=== PATIENT | female | born 1980 | race Caucasian/White ===

== ENCOUNTER 2024-01-03 10:31 | Inpatient (IN) | payer MEDICAID, OTHER ==
[~2024-01-03] VITALS: Ht 167.6 cm; Wt 109.0 kg
[2024-01-03] VITALS (10 sets, daily range): BP systolic 120–130; BP diastolic 61–79; PULSE 98–115; RESP 14–24; TEMP 99.1; O2SAT 94–100
[2024-01-03] MEDS: ALBUTEROL SULF 2.5 MG/0.5ML(0.5%) NEB SOLN NEB ONE (11:22)
[2024-01-03] MEDS: IPRATROPIUM BROM 0.5 MG/2.5ML INH SOL NEB ONE (11:22)
[2024-01-03 11:24] LABS: Urine Bacteria FEW /hpf (None Seen); Urine Blood TRACE /uL (Negative); Urine Clarity Turbid (Clear); Urine Color Light-Yellow (Yellow); Urine Hyaline Cast MANY /lpf (0 - 2); Urine Mucus FEW (None Seen); Urine Protein, UAD 2+ (Negative); Urine Specific Gravity 1.015 (1.001-1.035); Urine Urobilinogen Normal (Negative); Urine WBC 6 /hpf (0 - 5); Urine pH 5.5 (5.0-9.0)
[2024-01-03 11:33] LABS: Basophils # (auto) 0 10 ^3/uL (0-0.2); Basophils % (auto) 0.1 % (0.0-2.0); Eosinophils # (auto) 0 10 ^3/uL (0-0.8); Eosinophils % (auto) 0.1 % (0.0-7.0); Hematocrit 44.4 % (36.0-46.0); Hemoglobin 14.1 g/dL (12.2-16.2); Lymphocytes % (auto) 8.2 % (10.0-50.0); Mean Corpuscular Hemoglobin 27.8 pg (28.0-32.0); Mean Corpuscular Hgb Conc. 31.7 g/dL (32.0-36.0); Mean Corpuscular Volume 87.6 fL (80.0-100.0); Monocytes # (auto) 1.3 10 ^3/uL (0-1.3); Monocytes % (auto) 5.2 % (0.0-12.0); Neutrophils # (auto) 21.5 10 ^3/uL (1.6-8.6); Neutrophils % (auto) 86.4 % (37.0-80.0); Red Blood Cells 5.07 10^6/uL (4.0-5.20); Red Cell Distribution Width 16.1 % (11.8-14.3); White Blood Cell 24.8 10^3/uL (4.4-10.8)
[2024-01-03] MEDS: cefTRIAXone 1GM/50ML D5W 50 ML IV ONE (11:38)
[2024-01-03] MEDS: methylPREDNISolone SOD SUCC 125 MG/2 ML VL IV ONE (11:38)
[2024-01-03 11:49] LABS: Alanine Aminotransferase 28 U/L (7-40); Albumin 4.4 g/dL (3.2-4.8); Alkaline Phosphatase 97 U/L (46-116); Anion Gap 8 (5-15); Aspartate Aminotransferase 33 U/L (13-40); BUN/Creatinine Ratio 8.8 (10.0-20.0); Bilirubin, Total 0.4 mg/dL (0.2-1.0); Blood Urea Nitrogen 10 mg/dL (9-23); Calcium 9.1 mg/dL (8.5-10.1); Carbon Dioxide 22 mmol/L (20-30); Chloride 107 mmol/L (98-107); Glucose 218 mg/dL (74-106); Sodium 137 mmol/L (136-145); Total Protein 7.4 g/dL (5.7-8.2)
[2024-01-03] MEDS ORDERED: MORPHINE SULFATE INJ 2 MG/ml SYRG IV PRN (13:00)
[2024-01-03] MEDS ORDERED: SODIUM CHLORIDE 0.9% 1,000 ML IV SCH (13:00)
[2024-01-03] MEDS ORDERED: DOCUSATE SOD 100 MG CAP PO PRN (13:00)
[2024-01-03 14:05] LABS: Lactic Acid w/Reflex 2.2 mmol/L (0.4-2.0)
[2024-01-03] MEDS: IPRATROPIUM BROM 0.5 MG/2.5ML INH SOL NEB SCH (14:13)
[2024-01-03] MEDS: ALBUTEROL SULF 2.5 MG/0.5ML(0.5%) NEB SOLN NEB SCH (14:13)
[2024-01-03] MEDS ORDERED: VANCOMYCIN PER PHARMACY 0 MG IV SCH (14:15)
[2024-01-03] MEDS ORDERED: VANCOMYCIN 1GM/200ML 200 ML IV ONE (14:15)
[2024-01-03] MEDS ORDERED: SODIUM CHLORIDE 0.9% 2,000 ML IV ONE (14:15)
[2024-01-03] MEDS ORDERED: DEXTROSE (50%) 50ML SYRG IV PRN (14:30)
[2024-01-03] MEDS: levoFLOXacin 500MG 100 ML IV ONE (14:49)
[2024-01-03] MEDS: methylPREDNISolone SOD SUCC 125 MG/2 ML VL IV SCH (14:49)
[2024-01-03] MEDS: IOHEXOL 350 MG/ML 100ML IJ ONE (14:50)
[2024-01-03] MEDS: PANTOPRAZOLE 40 MG/10 ML VIAL INJ IV ONE (14:51)
[2024-01-03] MEDS: VANCOMYCIN 1GM/200ML 200 ML IV SCH (15:59)
[2024-01-03 16:18] LABS: Base Excess -9.4 mmol/L (-2.0-2.0)
[2024-01-03 16:20] LABS: Base Excess -8.1 mmol/L (-2.0-2.0)
[2024-01-03] MEDS: ASPirin-EC 325mg tab PO ONE (16:22)
[2024-01-03] MEDS: FUROSEMIDE 40 MG/4 ML VIAL IV ONE (16:24)
[2024-01-03] MEDS: SODIUM BICARB 8.4% 50Meq/50ml SYR Vial IV ONE (16:50)
[2024-01-03] MEDS ORDERED: FUROSEMIDE 20 MG/2 ML VIAL IV SCH (18:00)
[2024-01-03] MEDS: ONDANSETRON HCL 4 MG/2 ML VIAL IV PRN (18:30)
[2024-01-03] MEDS: ENOXAPARIN SOD 40 MG/0.4 ML SYRINGE SC ONE (18:31)
[2024-01-03] MEDS: InsuLIN REG 1unit/0.01ml Soln (100units/ml) SC SCH (18:40)
[2024-01-03] MEDS: ACCU-CHEK COMFORT CURVE STRIP VI SCH (18:40)
[2024-01-03 20:08] LABS: Base Excess -11.6 mmol/L (-2.0-2.0)
[2024-01-03] MEDS ORDERED: ATORVASTATIN 20 MG TAB PO SCH (22:00)
[2024-01-03] MEDS ORDERED: METOPROLOL TARTRATE 25 MG TAB PO SCH (22:00)
[2024-01-03] MEDS ORDERED: ENOXAPARIN SOD 120 MG/0.8 ML SYRINGE SC SCH (22:00)
[2024-01-04] VITALS (20 sets, daily range): BP systolic 112–133; BP diastolic 70–91; PULSE 94–110; RESP 13–23; TEMP 97.8–98.5; O2SAT 92–100
[2024-01-04 05:43] LABS: Basophils # (auto) 0 10 ^3/uL (0-0.2); Basophils % (auto) 0.2 % (0.0-2.0); Eosinophils # (auto) 0 10 ^3/uL (0-0.8); Hematocrit 42.1 % (36.0-46.0); Hemoglobin 13.5 g/dL (12.2-16.2); Lymphocytes # (auto) 0.9 10 ^3/uL (0.4-5.4); Lymphocytes % (auto) 4.1 % (10.0-50.0); Mean Corpuscular Hemoglobin 27.9 pg (28.0-32.0); Mean Corpuscular Hgb Conc. 32.1 g/dL (32.0-36.0); Monocytes # (auto) 0.9 10 ^3/uL (0-1.3); Monocytes % (auto) 4.1 % (0.0-12.0); Neutrophils # (auto) 20.2 10 ^3/uL (1.6-8.6); Neutrophils % (auto) 91.6 % (37.0-80.0); Nucleated Red Blood Cells % 0.1 %; Red Blood Cells 4.84 10^6/uL (4.0-5.20); Red Cell Distribution Width 15.5 % (11.8-14.3)
[2024-01-04 06:12] LABS: Alanine Aminotransferase 29 U/L (7-40); Alkaline Phosphatase 90 U/L (46-116); Anion Gap 10 (5-15); BUN/Creatinine Ratio 11.4 (10.0-20.0); Blood Urea Nitrogen 21 mg/dL (9-23); Calcium 9.5 mg/dL (8.5-10.1); Carbon Dioxide 22 mmol/L (20-30); Chloride 101 mmol/L (98-107); Glucose 149 mg/dL (74-106); Potassium 5.3 mmol/L (3.5-5.1); Sodium 133 mmol/L (136-145); Triglycerides 123 mg/dL (< 150)
[2024-01-04 06:13] LABS: Albumin 4.8 g/dL (3.2-4.8); Aspartate Aminotransferase 34 U/L (13-40); LDL Cholesterol 126 mg/dL (< 100)
[2024-01-04 06:14] LABS: Bilirubin, Total 0.5 mg/dL (0.2-1.0); Cholesterol 205 mg/dL (< 200); HDL Cholesterol 68 mg/dL (40-59)
[2024-01-04] MEDS: KETOROLAC TROMETH 30 MG/ML 1ML VIAL IV ONE (08:12)
[2024-01-04] MEDS: ENOXAPARIN SOD 40 MG/0.4 ML SYRINGE SC SCH (09:38)
[2024-01-04] MEDS: PANTOPRAZOLE 40 MG/10 ML VIAL INJ IV SCH (09:38)
[2024-01-04] MEDS: levoFLOXacin 500MG 100 ML IV SCH (09:38)
[2024-01-04] MEDS ORDERED: EMPAGLIFLOZIN 10 MG TAB PO SCH (10:00)
[2024-01-04] MEDS: levoFLOXacin 250MG 50 ML IV SCH (10:00)
[2024-01-04] MEDS ORDERED: ASPirin 81 mg TAB PO SCH (10:00)
[2024-01-04] MEDS ORDERED: KETOROLAC TROMETH 30 MG/ML 1ML VIAL IV PRN (13:45)
[2024-01-04] MEDS: KETOROLAC TROMETH 30 MG/ML 1ML VIAL IV PRN (14:24)
[2024-01-04 15:54] LABS: COVID19 ANTIGEN SOFIA FIA NEGATIVE (NEGATIVE)
[2024-01-04 15:55] LABS: Rapid Influenza A Negative (Negative); Rapid Influenza B Negative (Negative)
[2024-01-04] MEDS ORDERED: ALBUAER3 IN (19:26)
[2024-01-04] MEDS ORDERED: ALB5IS NEB (19:26)
[2024-01-04] MEDS: ATORVASTATIN 20 MG TAB PO SCH (22:00)
[2024-01-05] VITALS (22 sets, daily range): BP systolic 113–137; BP diastolic 58–81; PULSE 82–105; RESP 14–22; TEMP 98–98.4; O2SAT 90–100
[2024-01-05] MEDS ORDERED: guaiFENesin-DM 100/10mg/5ml SYR PO PRN (07:45)
[2024-01-05 11:17] LABS: Hepatitis B Surface Antigen Negative (Negative)
[2024-01-05 11:38] LABS: Hepatitis C Antibody Negative (Negative)
[2024-01-05 14:25] LABS: Amphetamine Screen, Urine Neg (NEGATIVE); Barbiturate Scree,Urine Neg (NEGATIVE); Benzodiazephine Screen, Urine Neg (NEGATIVE); Cannabinoid Screen, Urine Neg (NEGATIVE); Cocaine Screen, Urine Pos (NEGATIVE); Opiate Scree,Urine Neg (NEGATIVE); Phencyclidine Screen, Urine Neg (NEGATIVE)
[2024-01-05] MEDS: NITROGLYCERIN 0.4 MG SL TAB SL PRN (14:28)
[2024-01-05] MEDS: MORPHINE SULFATE 4 MG/ML SYR/VIAL IV PRN (15:04)
[2024-01-06] VITALS (9 sets, daily range): BP systolic 125–134; BP diastolic 67–73; PULSE 79–89; RESP 16–18; TEMP 97.7–98; O2SAT 92–98
[2024-01-06] MEDS ORDERED: LEVO500T91 PO ×2 (08:25→09:16)
[2024-01-06] MEDS ORDERED: ALBUAER3 IN ×2 (08:25→09:16)
[2024-01-06] MEDS ORDERED: PRED20TA2 PO ×2 (08:25→09:16)
[2024-01-06] MEDS ORDERED: ATOR-507 PO ×2 (08:29→09:16)
[2024-01-06] MEDS ORDERED: NITROGLYCERIN 0.4 MG SL TAB SL ONE (10:00)
[2024-01-06] MEDS: methylPREDNISolone SOD SUCC 40 MG/ML VL IV SCH (10:00)
== END 2024-01-06 10:17 | disposition home or self-care (01) | DRG 720 ==
LOC: ER 10:31 → EDBD 10:31 → TELE 13:06 → TELE-CENTR 01-04 18:13
PROVIDERS: ADMIT Nurse Practitioner Family; ATTEND Family Medicine
PROC: 5A09357 Assistance with Respiratory Ventilation, Less than 24 Consecutive Hours, Continuous Positive Airway Pressure (ICD-10-PCS; principal; 2024-01-03)
DX: A41.9 Sepsis, unspecified organism (principal); I46.9 Cardiac arrest, cause unspecified; J96.01 Acute respiratory failure with hypoxia; J96.02 Acute respiratory failure with hypercapnia; J18.8 Other pneumonia, unspecified organism; R65.21 Severe sepsis with septic shock; J44.0 Chronic obstructive pulmonary disease with (acute) lower respiratory infection; J18.9 Pneumonia, unspecified organism; J45.901 Unspecified asthma with (acute) exacerbation; J44.1 Chronic obstructive pulmonary disease with (acute) exacerbation; N17.9 Acute kidney failure, unspecified; Z20.822 Contact with and (suspected) exposure to COVID-19; N30.00 Acute cystitis without hematuria; F17.200 Nicotine dependence, unspecified, uncomplicated; E66.01 Morbid (severe) obesity due to excess calories; E78.00 Pure hypercholesterolemia, unspecified; R73.9 Hyperglycemia, unspecified; Z98.51 Tubal ligation status; Z68.41 Body mass index [BMI] 40.0-44.9, adult; F14.10 Cocaine abuse, uncomplicated; F11.10 Opioid abuse, uncomplicated
CPT/HCPCS: 36415; 36600; 71045; 71275; 80053; 80061; 80202; 80307; 80320; 81001; 82805; 82962; 83036; 83605; 83880; 84484; 84702; 85025; 85379; 86803; 87040; 87340; 87426; 87804; 93005; 93306; 93970; 94640; 94660; 96365; 96367; 96375; 97163; 99291; C9113; G0378; J1815; J1885; J1956; J2405